=== PATIENT | female | born 1970 | race Hispanic/Latino ===

== ENCOUNTER 2017-12-11 06:10 | Observation (INO) | payer MEDICAID, SELFPAY ==
[2017-12-10 11:38] VITALS: BP 201/91
[2017-12-10 11:56] LABS: BASOPHILS % (AUTO) 0.9 % (0.0-5.0); EOSINOPHILS % (AUTO) 10.3 % (0.0-8.0); HEMATOCRIT 41.5 % (36-48); LYMPHOCYTES % (AUTO) 29.2 % (21.0-51.0); MEAN CORPUSCULAR HEMOGLOBIN 26.6 pg (27.0-33.0); MEAN CORPUSCULAR HGB CONC 32.2 g/dL (32.0-36.0); MEAN CORPUSCULAR VOLUME 82.6 fL (79-99); MONOCYTES % (AUTO) 8.9 % (3.0-13.0); NEUTROPHILS % (AUTO) 50.7 % (40.0-77.0); PLATELET COUNT (AUTO) 211 K/uL (130-400); RED BLOOD CELL COUNT(AUTO) 5.02 MIL/uL (4.00-5.50); RED CELL DISTRIBUTION WIDTH 31.3 % (11.0-15.5); WHITE BLOOD COUNT (AUTO) 6.8 K/uL (4.8-10.8)
[2017-12-10 12:20] VITALS: BP 180/76
[2017-12-10] MEDS: CEFAZOLIN SODIUM 1 GM VIAL IVP SCH (12:45)
[~2017-12-11] VITALS: Ht 165.1 cm; Wt 106.2 kg
[2017-12-11] VITALS (23 sets, daily range): BP systolic 149–183; BP diastolic 80–105
[~2017-12-11 06:10] MED LIST: ALPR0.5T PO; FERR325T22 PO
[2017-12-11] MEDS ORDERED: FAMOTIDINE/PF 20 MG/2 ML VIAL IV ONE (06:34)
[2017-12-11] MEDS ORDERED: LACTATED RINGERS 1000ML 1,000 ML IV ONE (08:03)
[2017-12-11] MEDS ORDERED: MIDAZOLAM HCL 1 MG/ML 2ML VIAL ONE (08:56)
[2017-12-11] MEDS ORDERED: DEXAMETHASONE SOD PHOSPHATE 10MG/ML 1ML VIAL ONE (08:56)
[2017-12-11] MEDS ORDERED: ONDANSETRON HCL 4 MG/2 ML VIAL ONE (08:56)
[2017-12-11] MEDS ORDERED: LIDOCAINE PF 2% 5ML ABBOJECT ONE (08:56)
[2017-12-11] MEDS ORDERED: ROCURONIUM 10MG/1ML SYR 10 MG/ML ML ONE (08:56)
[2017-12-11] MEDS ORDERED: NEOSTIGMINE 5MG/5ML SYR IV ONE (08:56)
[2017-12-11] MEDS ORDERED: SUCCINYLCHOLINE 200MG/10ML SYR ONE (08:56)
[2017-12-11] MEDS ORDERED: PROPOFOL 10 MG/ML 20ML VIAL IV ONE (08:56)
[2017-12-11] MEDS ORDERED: FENTANYL CITRATE PF 50 MCG/1 ML 2ML VIAL ONE (08:58)
[2017-12-11] MEDS: CEFAZOLIN SODIUM 1 GM VIAL IVP SCH ×2 (09:00→12:09)
[2017-12-11] MEDS ORDERED: GLYCOPYRROLATE 1 MG/5 ML SYRINGE ONE (10:23)
[2017-12-11] MEDS ORDERED: MEPERIDINE-PF 25 MG/ML SYG ONE ×2 (10:58→11:27)
[2017-12-11] MEDS ORDERED: ONDANSETRON HCL 4 MG/2 ML VIAL IVP PRN (12:15)
[2017-12-11] MEDS ORDERED: PROMETHAZINE HCL 25 MG/ML 1ML AMPULE IM PRN (12:15)
[2017-12-11] MEDS ORDERED: SIMETHICONE 80 MG TAB.CHEW PO PRN (12:15)
[2017-12-11] MEDS ORDERED: BISACODYL 10 MG SUPP.RECT RC PRN (12:15)
[2017-12-11] MEDS ORDERED: IBUPROFEN 600 MG TABLET PO PRN (12:15)
[2017-12-11] MEDS: MEPERIDINE-PF 75 MG/ML SYG IM PRN ×2 (12:23→17:31)
[2017-12-11] MEDS: DEXTROSE 5 %-0.45 % NACL 1,000 ML IV PRN ×2 (12:24→18:55)
[2017-12-11] MEDS: PROMETHAZINE HCL 25 MG/ML 1ML AMPULE IM PRN ×2 (12:24→17:31)
[2017-12-11] MEDS: ACETAMINOPHEN-CODEINE 300/30MG TAB PO PRN ×2 (14:17→23:30)
[2017-12-11] MEDS: DOCUSATE SODIUM 100 MG CAP PO PRN (21:09)
[2017-12-12 01:19] VITALS: BP 154/95
[2017-12-12] MEDS: DEXTROSE 5 %-0.45 % NACL 1,000 ML IV PRN (04:12)
[2017-12-12 04:26] VITALS: BP 137/87
[2017-12-12 05:26] LABS: HEMATOCRIT 38.5 % (36-48); MEAN CORPUSCULAR HEMOGLOBIN 26.5 pg (27.0-33.0); MEAN CORPUSCULAR HGB CONC 32.1 g/dL (32.0-36.0); MEAN CORPUSCULAR VOLUME 82.5 fL (79-99); PLATELET COUNT (AUTO) 200 K/uL (130-400); RED BLOOD CELL COUNT(AUTO) 4.67 MIL/uL (4.00-5.50); RED CELL DISTRIBUTION WIDTH 30.6 % (11.0-15.5); WHITE BLOOD COUNT (AUTO) 16.6 K/uL (4.8-10.8)
[2017-12-12] MEDS: ACETAMINOPHEN-CODEINE 300/30MG TAB PO PRN (06:43)
[2017-12-12] MEDS ORDERED: IBUPROFEN 800 MG TAB PO PRN (07:45)
[2017-12-12] MEDS ORDERED: DOCUSATE SODIUM 100 MG CAP PO PRN (07:45)
[2017-12-12] MEDS ORDERED: SIMETHICONE 80 MG TAB.CHEW PO PRN (07:45)
[2017-12-12] MEDS ORDERED: ACETAMINOPHEN-CODEINE 300/30MG TAB PO PRN (07:45)
[2017-12-12] MEDS ORDERED: BISACODYL 10 MG SUPP.RECT RC PRN (07:45)
[2017-12-12] MEDS ORDERED: HYDROCODONE/ACETAMINOPHEN 5/325 MG TAB PO PRN (07:45)
[2017-12-12 08:11] VITALS: BP 146/78
[2017-12-12] MEDS: DOCUSATE SODIUM 100 MG CAP PO PRN (09:05)
[2017-12-12 11:57] VITALS: BP 157/96
[2017-12-12] MEDS: CEFAZOLIN SODIUM 1 GM VIAL IVP SCH (12:45)
== END 2017-12-12 14:20 | disposition home or self-care (01) ==
LOC: DAH 06:10 → WSH 06:11 → DAH 06:11
PROVIDERS: ADMIT Obstetrics & Gynecology; ATTEND Obstetrics & Gynecology
DX: N92.1 Excessive and frequent menstruation with irregular cycle (principal); N83.202 Unspecified ovarian cyst, left side; N83.201 Unspecified ovarian cyst, right side; K46.9 Unspecified abdominal hernia without obstruction or gangrene; Z23 Encounter for immunization
CPT/HCPCS: 36415 ×2; 58262; 85025; 85027; 86850; 86900; 86901; 88305; 88307; 96372; A4218; A4351; A4510; A4606; G0008; G0378 ×32; J0330; J0690; J1100; J2001; J2175 ×4; J2250; J2405; J2550 ×2; J2704; J2710; J3010; J3490 ×2; J7120; Q2038; 90471